=== PATIENT | male | born 1985 | race Two or more races ===

== ENCOUNTER 2018-12-27 14:08 | Emergency (ER) | payer MEDICAID ==
[~2018-12-27] VITALS: Ht 185.4 cm; Wt 93.0 kg
[2018-12-27 15:15] VITALS: BP 154/98
== END 2018-12-27 15:15 | disposition home or self-care (01) ==
LOC: ER 14:08
DX: Z76.0 Encounter for issue of repeat prescription (principal); F90.9 Attention-deficit hyperactivity disorder, unspecified type
CPT/HCPCS: 99283

== ENCOUNTER 2019-01-01 15:13 | Emergency (ER) | payer MEDICAID ==
[~2019-01-01] VITALS: Ht 182.9 cm; Wt 91.0 kg
[2019-01-01 20:22] VITALS: BP 156/104
== END 2019-01-01 22:03 | disposition home or self-care (01) ==
LOC: ER 15:13
DX: Z76.0 Encounter for issue of repeat prescription (principal); F90.9 Attention-deficit hyperactivity disorder, unspecified type; R03.0 Elevated blood-pressure reading, without diagnosis of hypertension
CPT/HCPCS: 99283

== ENCOUNTER 2019-01-26 17:02 | Emergency (ER) | payer MEDICAID ==
[~2019-01-26] VITALS: Ht 185.4 cm; Wt 93.0 kg
[2019-01-26] MEDS ORDERED: SODIUM CHLORIDE 0.9% 1,000 ML IV ONE (22:07)
[2019-01-26] MEDS ORDERED: KETOROLAC 15MG/ML VIAL IV ONE (22:15)
[2019-01-26] MEDS ORDERED: ASPIRIN 81MG TABLET PO ONE (22:15)
[2019-01-26] MEDS ORDERED: METOCLOPRAMIDE HCL 10MG/2ML VIAL IV ONE (22:15)
[2019-01-26] MEDS ORDERED: ACETAMINOPHEN 500MG TABLET PO ONE (22:15)
[2019-01-26 22:28] LABS: BASOPHILS % 1.3 % (0.0-2.0); EOSINOPHILS % 1.8 % (0.0-5.0); HEMATOCRIT. 44.8 % (42.0-52.0); HEMOGLOBIN. 15.3 g/dL (14.0-18.0); LYMPHOCYTES % 25.3 % (20.0-50.0); MEAN CORPUSCULAR HEMOGLOBIN 30.3 pg (28.0-32.0); MEAN CORPUSCULAR VOLUME 88.7 fL (80.0-94.0); MONOCYTES % 6.3 % (2.0-8.0); NEUTROPHILS % 65.3 % (40.0-76.0); PLATELET 205 x1000/uL (130-400); RED BLOOD CELL COUNT 5.04 mill/uL (4.7-6.1); RED CELL DISTRIBUTION WIDTH 14.4 % (11.6-14.6)
[2019-01-26 22:35] LABS: CHLORIDE 105 mEq/L (98-107)
[2019-01-27 00:23] VITALS: BP 113/70
== END 2019-01-27 00:25 | disposition home or self-care (01) ==
LOC: ER 17:02
DX: R07.89 Other chest pain (principal); R51 Headache; I10 Essential (primary) hypertension; D72.829 Elevated white blood cell count, unspecified
CPT/HCPCS: 36415; 71045; 80053; 84484; 85025; 93005; 96374; 96375; 99284; J1885; J2765; J7030; Z7610

== ENCOUNTER 2020-11-22 18:59 | Emergency (ER) | payer MEDICAID ==
[~2020-11-22] VITALS: Ht 182.9 cm; Wt 89.0 kg
[2020-11-22] MEDS ORDERED: SODIUM CHLORIDE 0.9% 1,000 ML IV ONE (20:45)
[2020-11-22 20:47] LABS: CLARITY URINE CLEAR (CLEAR); COLOR URINE YELLOW (YELLOW); KETONES URINE NEGATIVE (NEGATIVE); LEUKOCYTE ESTERASE URINE NEGATIVE (NEGATIVE); NITRITE URINE NEGATIVE (NEGATIVE); OCCULT BLOOD URINE NEGATIVE (NEGATIVE); PROTEIN URINE NEGATIVE (NEGATIVE); UROBILINOGEN URINE 0.2 E.U./dL (0.2-1.0)
[2020-11-22 20:54] LABS: BASOPHILS % 0.3 % (0.0-2.0); EOSINOPHILS % 11.6 % (0.0-5.0); HEMATOCRIT. 42.6 % (42.0-52.0); HEMOGLOBIN. 14.9 g/dL (14.0-18.0); LYMPHOCYTES % 27.4 % (20.0-50.0); MEAN CORPUSCULAR HEMOGLOBIN 29.7 pg (28.0-32.0); MEAN CORPUSCULAR VOLUME 85.1 fL (80.0-94.0); MEAN PLATELET VOLUME 9.6 fl (7.4-10.4); MONOCYTES % 6.4 % (2.0-8.0); NEUTROPHILS % 54.3 % (40.0-76.0); PLATELET 253 x1000/uL (130-400); RED BLOOD CELL COUNT 5.01 mill/uL (4.7-6.1); RED CELL DISTRIBUTION WIDTH 13.9 % (11.6-14.6)
[2020-11-22 21:00] LABS: CHLORIDE 102 mEq/L (98-107)
[2020-11-22] MEDS ORDERED: CIPR500T5 MT (22:20)
[2020-11-22 22:40] VITALS: BP 128/76
== END 2020-11-22 22:57 | disposition home or self-care (01) ==
LOC: ER 18:59
DX: R19.7 Diarrhea, unspecified (principal); I10 Essential (primary) hypertension; E78.00 Pure hypercholesterolemia, unspecified; E11.9 Type 2 diabetes mellitus without complications; Z91.018 Allergy to other foods
CPT/HCPCS: 36415; 71045; 80048; 80076; 81003; 83690; 84484; 85025; 93005; 96360; 99285; J7030

== ENCOUNTER 2021-09-25 15:34 | Emergency (ER) | payer MEDICAID ==
[~2021-09-25] VITALS: Ht 185.4 cm; Wt 86.0 kg
[~2021-09-25 15:34] MED LIST: CIPR500T5 MT
[2021-09-25] MEDS ORDERED: IBUPROFEN 400MG TABLET PO ONE (19:30)
[2021-09-25] MEDS ORDERED: IBUP-2028 MT (19:40)
[2021-09-25] MEDS ORDERED: CEPH500C2 MT (19:40)
[2021-09-25] MEDS ORDERED: SULF1TAB48 MT (19:40)
[2021-09-25 20:08] VITALS: BP 112/78
== END 2021-09-25 20:08 | disposition home or self-care (01) ==
LOC: ER 15:34
DX: J34.0 Abscess, furuncle and carbuncle of nose (principal); I10 Essential (primary) hypertension; E78.00 Pure hypercholesterolemia, unspecified; Z91.018 Allergy to other foods; Z98.890 Other specified postprocedural states
CPT/HCPCS: 99283

== ENCOUNTER 2021-09-29 20:03 | Emergency (ER) | payer MEDICAID, OTHER ==
[~2021-09-29] VITALS: Ht 185.4 cm; Wt 84.6 kg
[~2021-09-29 20:03] MED LIST changes: +CEPH500C2 MT; +IBUP-2028 MT; +SULF1TAB48 MT
[2021-09-29 20:44] VITALS: BP 146/78
[2021-09-30] MEDS ORDERED: MECLIZINE 25MG TABLET PO ONE (02:15)
[2021-09-30] MEDS ORDERED: ACETAMINOPHEN 325MG TABLET PO ONE (02:15)
[2021-09-30] MEDS ORDERED: MECL-159 MT ×3 (03:05→04:07)
== END 2021-09-30 03:40 | disposition home or self-care (01) ==
LOC: ER 20:03
DX: R42 Dizziness and giddiness (principal); L02.818 Cutaneous abscess of other sites; I10 Essential (primary) hypertension
CPT/HCPCS: 99283; J8597